=== PATIENT | female | born 1985 | race American Indian/Alaskan Native ===

== ENCOUNTER 2017-04-11 10:30 | Outpatient (CLI) | payer MEDICAID ==
[2017-04-11] MEDS ORDERED: LACTATED RINGERS 500 ML IV ONE (10:54)
[2017-04-11 12:21] LABS: Hematocrit 24.4 % (30.3-42.9); Hemoglobin 8.4 gm/dl (10.1-14.3); Mean Corpuscular HGB Conc 35 % (30-34); Mean Corpuscular Hemoglobin 28 pg (28-32); Mean Corpuscular Volume 80 fl (79-97); Platelet Count 340 K/mm3 (140-440); Red Blood Count 3.04 M/mm3 (3.65-5.03); Red Cell Distribution Width 15.6 % (13.2-15.2); White Blood Count 9.2 K/mm3 (4.5-11.0)
[2017-04-11 12:23] LABS: Bacteria,Urine 1+ /HPF (Negative); Bilirubin,Urine NEG (Negative); Blood,Urine NEG (Negative); Ketones,Urine NEG (Negative); Leukocyte Esterase,Urine NEG (Negative); Nitrite,Urine NEG (Negative); Protein,Urine <15 mg/dL mg/dL (Negative); Urobilinogen,Urine < 2.0 mg/dL (<2.0)
[2017-04-11 12:45] LABS: Uric Acid 5.2 mg/dL (3.5-7.6)
[2017-04-11 12:46] LABS: Alanine Aminotransferase 5 units/L (7-56); Albumin 3.2 g/dL (3.9-5); Albumin/Globulin Ratio 0.9 %; Alkaline Phosphatase 83 units/L (35-129); Amylase 80 units/L (27-131); Anion Gap 18 mmol/L; Blood Urea Nitrogen 5 mg/dL (7-17); Calcium 8.7 mg/dL (8.4-10.2); Carbon Dioxide 20 mmol/L (22-30); Chloride 103.1 mmol/L (98-107); Glucose 94 mg/dL (65-100); Potassium 3.6 mmol/L (3.6-5.0); Sodium 137 mmol/L (137-145); Total Protein 6.7 g/dL (6.3-8.2)
[2017-04-11] MEDS ORDERED: ZOFRAN IV ONE (13:00)
[2017-04-11] MEDS ORDERED: PEPCID IV ONE (13:00)
[2017-04-11] MEDS ORDERED: FIORICET PO ONE (13:20)
[2017-04-11 13:29] VITALS: BP 129/77
[2017-04-11 14:14] LABS: Lipase 14 units/L (13-60)
== END 2017-04-11 13:45 | disposition home or self-care (01) ==
LOC: TRG 10:30
PROVIDERS: ATTEND Obstetrics & Gynecology
DX: O47.03 False labor before 37 completed weeks of gestation, third trimester (principal); Z3A.30 30 weeks gestation of pregnancy
CPT/HCPCS: 36415; 59025; 80053; 81001; 82150; 83615; 83690; 84550; 85027; 96360; 96366; 96367; J2405; J7120

== ENCOUNTER 2017-05-15 17:44 | Outpatient (CLI) | payer MEDICAID ==
[2017-05-15 18:14] VITALS: BP 120/73
[2017-05-15 18:15] LABS: Bilirubin,Urine NEG (Negative); Blood,Urine NEG (Negative); Ketones,Urine NEG (Negative); Leukocyte Esterase,Urine NEG (Negative); Nitrite,Urine NEG (Negative); Protein,Urine <15 mg/dL mg/dL (Negative); Urobilinogen,Urine < 2.0 mg/dL (<2.0)
[2017-05-15] MEDS ORDERED: LACTATED RINGERS 1,000 ML ONE (18:30)
[2017-05-15] MEDS ORDERED: REGLAN IV ONE ×2 (19:26→20:00)
== END 2017-05-15 19:48 | disposition home or self-care (01) ==
LOC: TRG 17:44
PROVIDERS: ATTEND Obstetrics & Gynecology
DX: O47.03 False labor before 37 completed weeks of gestation, third trimester (principal); Z3A.36 36 weeks gestation of pregnancy
CPT/HCPCS: 59025; 81001; 96360; 96374; J2765; J7120

== ENCOUNTER 2017-06-11 05:08 | Inpatient (IN) | payer MEDICAID, OTHER ==
--- NOTE | 2017-06-11 02:14 | History and Physical Report ---
History of Present Illness Date of examination: 06/11/17 Chief complaint: scheduled section History of present illness: 31 year old female MC 06/18/17 at 39w0d with a h/o previous x 1 who presents for repeat sections. Pt reports irregular contractions, and denies vaginal bleeding and leakage of fluid. She has had care at [facility] since 20 wks complicated by genital herpes, obesity, sickle cell trait, exposure yellow fever and malarial meds during . She is GBS positive and does not desire future fertility. 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 Family/Genetic History: none Social history: no significant social history - Obstetrical History Expected Date of Delivery: 06/18/17 Actual Gestation: 39 Week(s) 0 Day(s) : 3 Para: 1 Hx # Term Pregnancies: 1 Number of Pregnancies: 0 Spontaneous Abortions: 1 Induced : 0 Number of Living Children: 1 Medications and Allergies Allergies Allergy/AdvReac Type Severity Reaction Status Date / Time No Known Allergies Allergy Verified 12/15/14 13:12 Home Medications Medication Instructions Recorded Confirmed Last Taken Type 19 Chewable 1 caplet PO DAILY 05/15/17 05/15/17 05/15/17 09:00 History 1 Review of Systems All systems: negative - Physical Exam Breasts: Positive: deferred Abdomen: Positive: soft (obese, gravid ) Uterus: Positive: enlarged (gravid ) Extremities: Positive: normal - Obstetrical FHR: category 1 Uterine Contraction Monitor Mode: Palpation Uterine Contraction Pattern: Absent Uterine Tone Measurement Phase: Resting Results Result Diagrams: 06/11/17 06:30 All other labs normal. Assessment and Plan A: IUP at 39w0d Previous section Undesired Fertility Obesity Genital Herpes P: Proceed with repeat section, bilateral tubal ligation and other indicated procedures.
[~2017-06-11 05:08] MED LIST: LACTATED RINGERS 1,000 ML IV SCH; PITOCin/NS 20 UNIT/1000ML DRIP 20 UNITS/1,000 ML BAG IV SCH; REGLAN IV ONE
[2017-06-11] MEDS ORDERED: ANCEF/STERILE WATER 2 GM/20 ML 2 GM/20 ML SYRINGE IV NR (06:00)
[2017-06-11] MEDS ORDERED: BICITRA PO ONE (06:15)
[2017-06-11] MEDS ORDERED: PEPCID IV ONE (06:15)
[2017-06-11] MEDS ORDERED: REGLAN ONE (06:41)
[2017-06-11 07:02] LABS: Basophils % (Auto) 0.3 % (0.0-1.8); Eosinophils % (Auto) 0.9 % (0.0-4.3); Hematocrit 29.9 % (30.3-42.9); Hemoglobin 10.1 gm/dl (10.1-14.3); Mean Corpuscular HGB Conc 34 % (30-34); Mean Corpuscular Volume 75 fl (79-97); Platelet Count 289 K/mm3 (140-440); White Blood Count 8.8 K/mm3 (4.5-11.0)
[2017-06-11 07:06] LABS: Mean Corpuscular Hemoglobin 25 pg (28-32)
--- NOTE | 2017-06-11 07:51 | Anesthesia Day of Surgery ---
Anesthesia Day of Surgery - Day of Surgery Patient Examined: Yes Patient H&P Reviewed: Yes Patient is NPO: Yes
--- NOTE | 2017-06-11 07:51 | Anesthesia Consultation ---
Anesthesia Consult and Med Hx Date of service: 06/11/17 - Airway Anesthetic Teeth Evaluation: Good ROM Head & Neck: Adequate Mental/Hyoid Distance: Adequate Mallampati Class: Class II Intubation Access Assessment: Probably Good - Pre-Operative Health Status ASA Pre-Surgery Classification: ASA2 Proposed Anesthetic Plan: Epidural, Spinal - Pulmonary Hx Asthma: No COPD: No Hx Pneumonia: No - Cardiovascular System Hx Hypertension: No Hx Coronary Artery Disease: No Hx Heart Attack/AMI: No Hx Angina: No - Central Nervous System Hx Seizures: No Hx Psychiatric Problems: No - Endocrine Hx Renal Disease: No Hx End Stage Renal Disease: No Hx Hypothyroidism: No Hx Hyperthyroidism: No - Hematic Hx Anemia: Yes Hx Sickle Cell Disease: Yes (trait) - Other Systems Hx Alcohol Use: No Hx Obesity: Yes (BMI 39.1)
[2017-06-11] MEDS ORDERED: NARCAN 0.4 MG/1 ML IV PRN ×2 (08:00→12:58)
[2017-06-11] MEDS ORDERED: PHENERGAN PR PRN (08:00)
[2017-06-11] MEDS ORDERED: SODIUM CHLORIDE FLUSH SYRINGE 10 ML IV PRN (08:00)
[2017-06-11] MEDS ORDERED: DILAUDID IV PRN (08:00)
[2017-06-11] MEDS ORDERED: BENADRYL IV PRN (08:00)
[2017-06-11] MEDS ORDERED: ZOFRAN IV PRN (08:00)
[2017-06-11] MEDS ORDERED: MORPHINE ONE (09:00)
[2017-06-11] MEDS ORDERED: WATER FOR IRRIG STERILE IR ONE (09:10)
[2017-06-11] MEDS ORDERED: NACL 0.9% IR ONE (09:10)
[2017-06-11] MEDS ORDERED: ANCEF/STERILE WATER 2 GM/20 ML IV ONE (09:16)
[2017-06-11] MEDS ORDERED: NACL 0.9% 1000 ML 1,000 ML ONE (09:47)
--- NOTE | 2017-06-11 11:06 | Procedure Note ---
OB Delivery Note - Delivery Date of Delivery: 06/11/17 Surgeon: MARCO FOSTER Estimated blood loss: other (700 mL) - Section Preop diagnosis: repeat Postop diagnosis: same section procedure: section, repeat low transverse, bilateral tubal ligation Disposition: PACU Complications: none Narrative: Please see operative note. - Infant A at 1 minute: 8 at 5 minutes: 9 Gender: Male (3362g (7lb 6.5 oz) @ 0957 am)
--- NOTE | 2017-06-11 11:06 | Operative Report ---
Operative Report Operative Report: Date of procedure: 06/11/17 Preoperative diagnosis: 1) IUP at 39w0d 2) Previous x 1 3) Obesity 4) Undesired Fertility Postoperative diagnosis: Same Procedure: 1) Repeat low transverse section 2) Bilateral tubal ligation via Filshie clip method Surgeon: Karmen Lou M.D. Anesthesia: Spinal-epidural Findings: 1) Viable male , Apgars 8 and 9, weight 3362 g, (7 lb 6.5 oz) 2) Normal-appearing uterus ovaries and tubes Estimated blood loss: 700 mL IV fluids: 1600 mL Urine output: 300 mL, clear at the end of the procedure Drains: Mcgarry to gravity Specimens: None Complications: None. Counts correct x 3. Disposition: Stable to PACU Indication for procedure: The patient is a 31 year old female at 39w0d with a h/o previous x 1 who presents for repeat section. Operation in detail: After the risks, benefits, alternatives and complications were explained to the patient she gave informed consent for the procedure. She was subsequently taken to the operating room where spinal-epidural anesthesia was noted to be adequate. She was subsequently placed in the dorsal supine position with leftward tilt and prepped and draped in a normal sterile fashion. heart tones were noted to be in the 130s prior to incision. A timeout was performed. A Pfannenstiel skin incision was made with the knife and carried down to the layer of the fascia with the Bovie. The fascia was incised in the midline and the fascial incision was extended bilaterally with the Bovie. Attention was then turned to the superior aspect of the incision which was grasped with two Kochers, tented up, and dissected off the rectus muscles. Attention was then turned to the inferior aspect of the incision which was grasped with two Kochers , tented up and dissected off the rectus muscles. The rectus muscles were then in the midline and partially transected for adequate visualization. The peritoneum was then entered sharply between two Renetta clamps. The peritoneal incision was extended with good visualization of the bladder. The peritoneal incision was then stretched. An Charlie self-retaining retractor was placed for visualization. The bladder blade was placed. The vesicouterine peritoneum was noted to be adherent to the lower uterine segment and a bladder flap was not created. A transverse incision was made in the lower uterine segment with a knife and extended bilaterally with the bandage scissors. The head was delivered without difficulty followed by shoulders and body. was bulb suctioned at delivery. The cord was clamped and cut and the was handed to NICU staff in attendance. Cord blood was collected. The placenta was then delivered manually. The uterus was then exteriorized and cleared of all clots and debris. The hysterotomy was then reapproximated with 0 Vicryl in a running locked fashion. Additional figure of eight suture of 0 Vicryl were used to obtain hemostasis. Attention was then turned to the tubal ligation. Both fallopian tubes were examined and noted to have multiple vessels in the mesosalpinx closely associated with them bilaterally. The decision was made to proceed with tubal ligation via Filshie clip method. Two Filshie clips were placed across the ampullae of each fallopian tube bilaterally. Hemostasis was noted. The hysterotomy was inspected and hemostasis was noted. Another figure of eight of 2-0 Vicryl was placed assure hemostasis. The uterus was then returned to the peritoneal cavity. All instruments were removed from the abdominal cavity. The gutters were irrigated and cleared of all clots and debris. The hysterotomy was again inspected and noted to be hemostatic. Surgicel was then placed over the hysterotomy. The rectus muscles and peritoneum were then reapproximated with 2-0 Vicryl in a running fashion in one layer. Surgicel was placed across the cut edges of the rectus muscle and hemostasis was noted. The fascia was reapproximated with 0 Vicryl in a running fashion. The skin was reapproximated with 4-0 Vicryl in a subcuticular fashion. The incision was then covered with steri strips and a pressure dressing. The procedure was then ended. The patient tolerated the procedure well and was taken to the PACU in stable condition. All instrument, lap, and needle counts were correct 3.
[2017-06-11] MEDS ORDERED: MYLICON PO PRN (12:58)
[2017-06-11] MEDS ORDERED: MORPHINE IV PRN ×2 (12:58→14:00)
[2017-06-11] MEDS ORDERED: SODIUM CHLORIDE FLUSH SYRINGE 10 ML IV SCH (12:58)
[2017-06-11] MEDS: TORADOL IV PRN (13:28)
[2017-06-11] MEDS ORDERED: TUCKS PAD TP PRN (14:00)
[2017-06-11] MEDS ORDERED: PITOCin/NS 20 UNIT/1000ML DRIP 20 UNITS/1,000 ML BAG IV SCH (15:00)
[2017-06-11] MEDS: D5LR 1,000 ML IV SCH (17:05)
[2017-06-11] MEDS: ANCEF/NS 1 GM/50 ML 1 GM/50 ML BAG IV SCH (17:05)
[2017-06-11 23:53] LABS: Hematocrit 28.6 % (30.3-42.9)
[2017-06-12] MEDS: ANCEF/NS 1 GM/50 ML 1 GM/50 ML BAG IV SCH (00:35)
[2017-06-12] MEDS: D5LR 1,000 ML IV SCH (01:48)
[2017-06-12] MEDS: TORADOL IV PRN (01:53)
[2017-06-12] MEDS ORDERED: BOOSTRIX IM ONE (06:00)
[2017-06-12] MEDS: PERCOCET 5/325 PO PRN ×3 (08:29→18:22)
--- NOTE | 2017-06-12 09:34 | Progress Note ---
Assessment and Plan - Patient Problems (1) delivery delivered Current Visit: Yes Status: Acute Plan to address problem: patient doing well consider discharge home tomorrow Subjective - Subjective Date of service: 06/12/17 Interval history: The patient reports being able to void. She is tolerating a clear diet. Pain is being controlled. Patient reports: appetite normal, voiding normally, pain well controlled : doing well Objective - Vital Signs Latest vital signs: Vital Signs Temp Pulse Resp BP BP Pulse Ox 06/12/17 08:25 98.8 F 98 H 20 106/60 97 06/12/17 03:45 98.9 F 73 20 118/74 98 06/12/17 01:20 99.1 F 79 20 111/68 95 06/11/17 20:32 92 H 104/65 97 06/11/17 12:30 97.7 F 77 20 102/55 06/11/17 12:20 113/74 06/11/17 12:15 97.6 F 88 21 110/59 100 06/11/17 12:10 70 13 110/59 96 06/11/17 12:05 73 18 112/62 94 06/11/17 12:00 71 17 109/60 96 06/11/17 11:55 72 14 115/56 97 06/11/17 11:50 71 18 115/56 98 06/11/17 11:45 68 16 102/53 98 06/11/17 11:40 74 18 112/58 100 06/11/17 11:39 70 10 L 102/55 06/11/17 11:38 102/55 06/11/17 11:35 71 13 102/55 97 06/11/17 11:30 75 16 111/52 97 06/11/17 11:25 76 14 110/57 98 06/11/17 11:20 78 19 111/59 98 06/11/17 11:19 77 15 113/55 98 06/11/17 11:14 97.7 F 73 12 113/55 99 Intake and Output 06/11/17 06/12/17 06/12/17 22:59 06:59 14:59 Intake Total 50 1120 Balance 50 1120 Intake: IV 50 1000 ANCEF/NS 1 GM/50 ML 1 gm 50 In 50 ml @ 100 mls/hr IV Q8H MURRAY Rx#:[id number] D5lr 1,000 ml @ 125 mls/ 1000 hr IV DIRECT MURRAY Rx#: [id number] Oral 120 Other: Total, Intake Amount 120 - Exam Abdomen: Present: normal appearance, soft Uterus: Present: normal, firm Incision: Present: dressed - Labs Labs: Abnormal lab results 06/11/17 Range/Units 23:11 Hgb 9.0 L (10.1-14.3) gm/dl Hct 28.6 L (30.3-42.9) %
[2017-06-12] MEDS ORDERED: M-M-R II VACCINE SUB-Q ONE (12:00)
[2017-06-12] MEDS: MOTRIN PO PRN ×2 (13:33→21:39)
[2017-06-12] MEDS: MILK OF MAGNESIA PO PRN ×2 (16:19→21:38)
[2017-06-12] MEDS: FEOSOL PO SCH (21:39)
[2017-06-13] MEDS: PERCOCET 5/325 PO PRN ×3 (04:12→15:33)
[2017-06-13] MEDS: MILK OF MAGNESIA PO PRN (04:12)
--- NOTE | 2017-06-13 07:29 | Discharge Summary ---
Providers - Providers Date of Admission: 06/11/17 05:08 Date of discharge: 06/13/17 Attending physician: MARCO FOSTER 06/11/17 12:58 Consult to Train Brake Operator [CONS] Routine Reason For Exam: Primary care physician: MARCO FOSTER Hospitalization Reason for admission: section Delivery: Procedure: section, bilateral tubal ligation, repeat low transverse Incision: normal complications: none Discharge diagnosis: IUP at term delivered [place] baby: male Hospital course: Patient admitted for a repeat delivery. Please see operative note for details of surgery. Her postoperative course was uneventful. Condition at discharge: Good Disposition: DC-01 TO HOME OR SELFCARE - Discharge Diagnoses (1) delivery delivered Status: Acute Plan - Discharge Medications Prescriptions: Ferrous Sulfate [Feosol 325 MG tab] 325 mg PO BID #60 tablet Ibuprofen [Motrin] 800 mg PO Q8HR PRN #30 tablet PRN Reason: Pain oxyCODONE /ACETAMINOPHEN [Percocet 5/325] 1 tab PO Q6HR PRN #30 tablet PRN Reason: Pain - Provider Discharge Summary Activity: no sex for 6 weeks, no heavy lifting 4 weeks, no strenuous exercise Diet: routine Instructions: routine Additional instructions: [] Smoking cessation referral if applicable(refer to patient education folder for contact #) [] Refer to [facility] Booklet Call your doctor immediately for: * Fever > 100.5 * Heavy vaginal bleeding ( >1 pad per hour) * Severe persistent headache * Shortness of breath * Reddened, hot, painful area to leg or breast * Drainage or odor from incision. * Keep incision clean and dry at all times and follow doctor's instructions regarding bathing/showering Follow-up in 2 weeks for an incision check - Follow up plan
--- NOTE | 2017-06-13 07:29 | Progress Note ---
Assessment and Plan - Patient Problems (1) delivery delivered Current Visit: Yes Status: Acute Plan to address problem: patient doing well discharge home Subjective - Subjective Date of service: 06/13/17 Interval history: The patient reports tolerating her diet without difficulty. Her pain is controlled. Patient reports: appetite normal, voiding normally, pain well controlled [place]: doing well Objective - Vital Signs Latest vital signs: Vital Signs Temp Pulse Resp BP Pulse Ox 06/13/17 00:50 98.7 F 104 H 20 122/61 98 06/12/17 18:22 20 06/12/17 08:25 98.8 F 98 H 20 106/60 97 Intake and Output 06/12/17 06/13/17 06/13/17 22:59 06:59 14:59 Intake Total 240 240 Balance 240 240 Intake: Oral 240 240 Other: Total, Intake Amount 240 240 # Voids Void 1 1 - Exam Abdomen: Present: normal appearance Uterus: Present: normal Incision: Present: normal
[2017-06-13] MEDS: FEOSOL PO SCH (12:16)
[2017-06-13] MEDS: MOTRIN PO PRN (12:20)
[2017-06-13 17:44] VITALS: BP 130/72
== END 2017-06-13 19:20 | disposition home or self-care (01) | DRG 765 ==
LOC: APU 05:08 → OB 12:57
PROVIDERS: ADMIT Obstetrics & Gynecology; ATTEND Obstetrics & Gynecology
PROC: 10D00Z1 Extraction of Products of Conception, Low, Open Approach (ICD-10-PCS; principal; 2017-06-11)
PROC: 0UL70CZ Occlusion of Bilateral Fallopian Tubes with Extraluminal Device, Open Approach (ICD-10-PCS; 2017-06-11)
PROC: 3E0234Z Introduction of Serum, Toxoid and Vaccine into Muscle, Percutaneous Approach (ICD-10-PCS; 2017-06-12)
DX: O34.211 Maternal care for low transverse scar from previous cesarean delivery (principal); O98.52 Other viral diseases complicating childbirth; E66.9 Obesity, unspecified; O99.214 Obesity complicating childbirth; B00.9 Herpesviral infection, unspecified; Z3A.39 39 weeks gestation of pregnancy; Z37.0 Single live birth; Z68.39 Body mass index [BMI] 39.0-39.9, adult; Z30.2 Encounter for sterilization; Z23 Encounter for immunization
CPT/HCPCS: 36415; 85014; 85018; 85025; 86850; 86900; 86901; J0690; J1885; J2270; J2590; J2765; J7030; J7120; J7121

== ENCOUNTER 2017-06-30 13:03 | Inpatient (IN) | payer MEDICAID ==
[2017-06-30] MEDS ORDERED: CALCIUM GLUCONATE IV ONE (13:05)
[2017-06-30] MEDS ORDERED: APRESOLINE IV PRN (13:05)
[2017-06-30] MEDS ORDERED: MAGNESIUM SULFATE 4GM/100ML 4 GM/100 ML BAG IV ONE ×2 (13:05→17:15)
--- NOTE | 2017-06-30 13:16 | History and Physical Report ---
History of Present Illness Date of examination: 06/30/17 Date of admission: 06/30/17 13:03 Chief complaint: sent from the office for elevated blood pressures History of present illness: Pt is a 31 year old female s/p repeat section with tubal ligation on 06/11/17 who presents to the office with headache and blood pressures 150/90s. She denies blurry vision and scotomata. She has no prior history of hypertension. 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: herpes Family/Genetic History: none Social history: no significant social history - Obstetrical History : 3 Para: 2 Hx # Term Pregnancies: 2 Number of Pregnancies: 0 Spontaneous Abortions: 0 Induced : 1 Number of Living Children: 2 Medications and Allergies Allergies Allergy/AdvReac Type Severity Reaction Status Date / Time No Known Allergies Allergy Verified 06/30/17 15:06 Home Medications Medication Instructions Recorded Confirmed Last Taken Type Ibuprofen [Motrin] 800 mg PO Q8HR PRN #30 tablet 06/11/17 06/30/17 06/29/17 Rx Ferrous Sulfate [Feosol 325 MG tab] 325 mg PO DAILY 06/30/17 06/30/17 06/29/17 History Active Meds: Active Medications Calcium Gluconate (Calcium Gluconate) 1,000 mg IV ONCE ONE Stop: 06/30/17 13:06 Hydralazine HCl (Apresoline) 5 mg IV Q30MIN PRN PRN Reason: Hypertension Lactated Ringer's (Lactated Ringers) 1,000 mls @ 125 mls/hr IV DIRECT MURRAY Magnesium Sulfate (Magnesium Sulfate 40gm/1000ml) 40 gm in 1,000 mls @ 25 mls/ hr IV TITR MURRAY PRN Reason: 1 GM/HR Stop: 07/01/17 13:59 Magnesium Sulfate (Magnesium Sulfate 4gm/100ml) 4 gm in 100 mls @ 300 mls/hr IV ONCE ONE Stop: 06/30/17 13:24 Review of Systems All systems: negative - Physical Exam Breasts: Positive: deferred Cardiovascular: Regular rate Lungs: Positive: Clear to auscultation Abdomen: Positive: soft (obese , 1 cm separation of incision; remainder clean/ dry and intact ) Uterus: Positive: enlarged Results Result Diagrams: 06/30/17 19:31 06/30/17 19:31 All other labs normal. Assessment and Plan A: preeclampsia Wound infection Obesity P: Admit to hospital IV magnesium sulfate for seizure prophylaxis PIH labs Clindamycin treatment for wound infection while Antihypertensives as indicated. Closely monitor clinical status.
[2017-06-30] MEDS ORDERED: MAGNESIUM SULFATE 40GM/1000ML 40 GM/1,000 ML BAG IV SCH ×2 (14:00→18:00)
[2017-06-30] MEDS ORDERED: LACTATED RINGERS 1,000 ML IV SCH (14:00)
[2017-06-30 16:20] LABS: Bilirubin,Urine NEG (Negative); Blood,Urine LG (Negative); Ketones,Urine NEG (Negative); Leukocyte Esterase,Urine SM (Negative); Mucus,Urine FEW /HPF; Nitrite,Urine NEG (Negative); Protein,Urine <15 mg/dL mg/dL (Negative); Urobilinogen,Urine < 2.0 mg/dL (<2.0)
[2017-06-30] MEDS ORDERED: MAGNESIUM SULFATE 40GM/1000ML 40 GM/1,000 ML BAG IV ONE (17:14)
[2017-06-30] MEDS ORDERED: LACTATED RINGERS 1,000 ML ONE (17:21)
[2017-06-30 19:52] LABS: Hematocrit 34.3 % (30.3-42.9); Hemoglobin 10.9 gm/dl (10.1-14.3); Mean Corpuscular HGB Conc 32 % (30-34); Mean Corpuscular Volume 77 fl (79-97); Platelet Count 321 K/mm3 (140-440); Red Blood Count 4.47 M/mm3 (3.65-5.03); Red Cell Distribution Width 19.7 % (13.2-15.2); White Blood Count 6.2 K/mm3 (4.5-11.0)
[2017-06-30 19:55] LABS: Mean Corpuscular Hemoglobin 24 pg (28-32)
[2017-06-30] MEDS: TYLENOL PO PRN (20:01)
[2017-06-30 20:21] LABS: Alanine Aminotransferase 8 units/L (7-56); Lactate Dehydrogenase 176 units/L (91-180)
[2017-07-01] MEDS: LACTATED RINGERS 1,000 ML IV SCH ×2 (04:12→15:00)
[2017-07-01] MEDS ORDERED: LACTATED RINGERS 1,000 ML IV SCH (05:00)
[2017-07-01] MEDS: TYLENOL PO PRN (07:54)
--- NOTE | 2017-07-01 09:01 | Progress Note ---
Assessment and Plan A: preeclampsia s/p section on 06/11/17 Obesity Wound infection P: Continue magnesium sulfate x 24 hrs Labetalol 100 mg BID Clindamycin 300 mg Q6H Monitor clinical status. Subjective - Subjective Date of service: 07/01/17 Principal diagnosis: Preeeclampsia, s/p section on 06/11/17 Interval history: Pt reports headache, but feel that it is similar to her migraines. Denies scotomata, blurry vision or right upper quadrant pain Patient reports: appetite normal, pain well controlled, ambulating normally Objective - Vital Signs Latest vital signs: Vital Signs Temp Pulse Resp BP Pulse Ox 07/01/17 04:15 98.0 F 73 18 144/83 07/01/17 02:00 98.9 F 86 18 142/76 07/01/17 00:00 98.2 F 79 18 138/84 06/30/17 22:00 98.2 F 78 18 145/93 06/30/17 21:01 18 06/30/17 20:01 16 06/30/17 20:00 98.4 F 82 18 140/92 06/30/17 18:00 16 135/79 99 06/30/17 17:45 98.7 F 98 H 18 138/74 99 06/30/17 17:35 69 149/86 100 06/30/17 17:30 63 158/92 06/30/17 16:20 97.9 F 67 16 162/89 Intake and Output 06/30/17 07/01/17 07/01/17 22:59 06:59 14:59 Intake Total 240 Output Total 1600 Balance 240 -1600 Intake: Oral 240 Output: Urine 1600 Void 1600 Other: Total, Intake Amount 240 Total, Output Amount 700 Weight 96.615 kg - Exam Breasts: Present: deferred Cardiovascular: Present: Regular rate Lungs: Present: Clear to auscultation Abdomen: Present: soft (obese) Uterus: Present: fundal height below umbilicus Extremities: Present: normal. Absent: tenderness Incision: Present: intact - Labs Labs: Abnormal lab results 06/30/17 06/30/17 06/30/17 Range/Units 19:31 19:31 21:41 MCV 77 L (79-97) fl MCH 24 L (28-32) pg RDW 19.7 H (13.2-15.2) % Creatinine 0.6 L (0.7-1.2) mg/dL Magnesium 3.10 H (1.7-2.3) mg/dL
[2017-07-01] MEDS ORDERED: NORMODYNE PO SCH (10:00)
[2017-07-01] MEDS ORDERED: FIORICET PO PRN (10:30)
[2017-07-01] MEDS: CLEOCIN PO SCH ×2 (12:10→18:12)
[2017-07-01] MEDS ORDERED: IMITREX PO ONE (13:55)
[2017-07-01] MEDS ORDERED: NORMODYNE PO ONE (18:12)
[2017-07-01] MEDS: NORMODYNE PO SCH (22:03)
[2017-07-02] MEDS: CLEOCIN PO SCH ×2 (00:07→05:22)
--- NOTE | 2017-07-02 08:23 | Progress Note ---
Assessment and Plan A: preeclampsia s/p 24 hrs of magnesium s/p section on 06/11/17 Obesity Wound infection P: Continue magnesium sulfate x 24 hrs Labetalol 400 mg BID Clindamycin 300 mg Q6H Monitor clinical status. Subjective - Subjective Date of service: 07/02/17 Principal diagnosis: Preeeclampsia, s/p section on 06/11/17 Interval history: Pt without complaints. No further headaches Patient reports: appetite normal, voiding normally, pain well controlled, ambulating normally Objective - Vital Signs Latest vital signs: Vital Signs Temp Pulse Resp BP BP 07/02/17 00:00 98.0 F 69 18 129/69 07/01/17 23:00 98.5 F 56 L 154/80 07/01/17 22:03 88 166/91 07/01/17 20:00 98.2 F 87 18 170/88 07/01/17 18:30 99.0 F 65 18 177/100 07/01/17 18:20 71 178/104 07/01/17 18:12 71 178/104 07/01/17 16:05 98.9 F 67 17 166/83 07/01/17 14:00 98.3 F 66 18 157/87 07/01/17 12:00 98.8 F 75 18 141/94 07/01/17 10:00 98.2 F 74 17 151/83 07/01/17 08:35 98.7 F 76 18 114/60 Intake and Output 07/01/17 07/02/17 07/02/17 22:59 06:59 14:59 Intake Total 480 120 Balance 480 120 Intake: Oral 480 120 Other: Total, Intake Amount 240 120 # Voids Void 1 1 - Exam Breasts: Present: deferred Cardiovascular: Present: Regular rate Lungs: Present: Clear to auscultation Abdomen: Present: soft Uterus: Present: fundal height below umbilicus Extremities: Present: normal Incision: Present: intact - Labs Labs: Abnormal lab results 07/01/17 Range/Units 13:35 Magnesium 3.70 H (1.7-2.3) mg/dL
--- NOTE | 2017-07-02 08:27 | Discharge Summary ---
Providers - Providers Date of Admission: 06/30/17 18:01 Date of discharge: 07/02/17 Attending physician: MARCO FOSTER Primary care physician: MARCO FOSTER Hospitalization Reason for admission: other ( preesclampsia ) Procedure details: IV magnesium sulfate administration Hospital course: Pt has been admitted for preeclampsia. She was given antihypertensive information and started on labetalol 400 mg BID. She will follow up in the office in 1 week for a blood pressure check. Condition at discharge: Stable Disposition: - TO HOME OR SELFCARE - Discharge Diagnoses (1) Obesity (BMI 35.0-39.9 without comorbidity) Status: Acute (2) Preeclampsia Status: Acute Qualifiers: Trimester: unspecified trimester Qualified Code(s): O14.90 - Unspecified pre-eclampsia, unspecified trimester Plan - Discharge Medications Prescriptions: Clindamycin [Clindamycin CAP] 300 mg PO Q6H #28 capsule Labetalol [Normodyne] 200 mg PO BID #60 tablet - Provider Discharge Summary Activity: routine, no sex for 6 weeks, no heavy lifting 4 weeks, no strenuous exercise Diet: routine Instructions: routine Additional instructions: [] Smoking cessation referral if applicable(refer to patient education folder for contact #) [] Refer to [facility] Booklet Call your doctor immediately for: * Fever > 100.5 * Heavy vaginal bleeding ( >1 pad per hour) * Severe persistent headache * Shortness of breath * Reddened, hot, painful area to leg or breast * Drainage or odor from incision. * Keep incision clean and dry at all times and follow doctor's instructions regarding bathing/showering - Follow up plan Follow up: MARCO FOSTER MD [Primary Care Provider] - 7 Days
[2017-07-02 09:35] VITALS: BP 126/82
[2017-07-02] MEDS: NORMODYNE PO SCH (09:46)
== END 2017-07-02 09:50 | disposition home or self-care (01) | DRG 776 ==
LOC: 3A 13:03 → UNDOADMIN 13:03 → OB 18:01
PROVIDERS: ADMIT Obstetrics & Gynecology; ATTEND Obstetrics & Gynecology
DX: O14.95 Unspecified pre-eclampsia, complicating the puerperium (principal); O86.0 Infection of obstetric surgical wound; O99.215 Obesity complicating the puerperium; E66.9 Obesity, unspecified; O99.355 Diseases of the nervous system complicating the puerperium; G43.909 Migraine, unspecified, not intractable, without status migrainosus; Z68.35 Body mass index [BMI] 35.0-35.9, adult; Z98.51 Tubal ligation status; Z79.899 Other long term (current) drug therapy
CPT/HCPCS: 36415; 81001; 82565; 83615; 83735; 84450; 84460; 85027; J3475; J7120

== ENCOUNTER 2017-06-30 15:00 | Emergency (ER) | payer MEDICAID ==
[2017-06-30 15:55] LABS: Basophils % (Auto) 0.6 % (0.0-1.8); Eosinophils % (Auto) 2.3 % (0.0-4.3); Hematocrit 35.1 % (30.3-42.9); Hemoglobin 11.2 gm/dl (10.1-14.3); Mean Corpuscular HGB Conc 32 % (30-34); Mean Corpuscular Volume 77 fl (79-97); Platelet Count 341 K/mm3 (140-440); Red Blood Count 4.57 M/mm3 (3.65-5.03); Red Cell Distribution Width 19.9 % (13.2-15.2); White Blood Count 6.6 K/mm3 (4.5-11.0)
[2017-06-30 16:00] LABS: Mean Corpuscular Hemoglobin 24 pg (28-32)
[2017-06-30] MEDS ORDERED: MAGNESIUM SULFATE 4GM/100ML 4 GM/100 ML BAG IV ONE (16:00)
[2017-06-30] MEDS ORDERED: NORMODYNE IV ONE (16:00)
--- NOTE | 2017-06-30 16:05 | Emergency Department Report ---
HPI - General Chief Complaint: High BP Time Seen by Provider: 06/30/17 15:52 - HPI HPI: Room 2 The patient is a 31-year-old female presenting to chief complaint of hypertension/preeclampsia. Patient is status post delivery via 2016. The patient states she went for a two-week checkup yesterday with her OB/ POOL COORDINATOR Dr. Lou and was found to be hypertensive. Patient states she followed up again today for repeat blood pressure was still felt to be hypertensive. The patient was subsequent was sent to the ED by her THREAD MARKER for preeclampsia. Patient admits to a slight headache intermittently since delivery. Patient denies nausea/vomiting, fever or edema. Sinus are postop pain and occasional headache patient denies any other forms of pain. Patient states she is breast- feeding and bottle feeding her Location: [See above] Duration: [See above] Quality: Headache Severity:02/01 Modifying factors: [see above] Context: [see above] Mode of transportation: Unknown ED Past Medical Hx - Past Medical History Hx Sickle Cell Disease: Yes (trait) Additional medical history: Miscarriage x 1 - Surgical History Additional Surgical History: C/S - Family History Family history: no significant - Social History Smoking Status: Never Smoker Substance Use Type: None - Medications Home Medications: Home Medications Medication Instructions Recorded Confirmed Last Taken Type 19 Chewable 1 caplet PO DAILY 05/15/17 06/12/17 06/10/17 09:00 History 1 Ferrous Sulfate [Feosol 325 MG tab] 325 mg PO BID #60 tablet 06/11/17 Unknown Rx Ibuprofen [Motrin] 800 mg PO Q8HR PRN #30 tablet 06/11/17 Unknown Rx oxyCODONE /ACETAMINOPHEN [Percocet 1 tab PO Q6HR PRN #30 tablet 06/11/17 Unknown Rx 5/325] ED Review of Systems ROS: Stated complaint: BLOOD PRESSURE HIGH Other details as noted in HPI Eyes: denies: eye pain ENT: denies: throat pain Cardiovascular: denies: chest pain Gastrointestinal: abdominal pain (appropriate postop pain). denies: nausea, vomiting Musculoskeletal: denies: back pain Neurological: headache Physical Exam - Physical Exam Vital Signs: Vital Signs 06/30/17 06/30/17 06/30/17 15:06 15:24 15:28 Temperature 98.6 F Pulse Rate 74 66 66 Respiratory 16 16 Rate Blood Pressure 178/104 Blood Pressure 179/87 [Left] O2 Sat by Pulse 100 100 Oximetry Physical Exam: GENERAL: The patient is well-developed well-nourished female lying on stretcher his cellphone not appearing to be in acute distress. [] HEENT: Normocephalic. Atraumatic. Extraocular motions are intact. Patient has moist mucous membranes. NECK: Supple. No meningitic signs are noted. Trachea midline CHEST/LUNGS: Clear to auscultation. There is no respiratory distress noted. HEART/CARDIOVASCULAR: Regular. There is no tachycardia. There is no gallop rub or murmur. ABDOMEN: Patient has normal bowel sounds. There is no abdominal distention. SKIN: There is no rash. There is no lower extremity pitting edema appreciated. There is no diaphoresis. NEURO: The patient is awake, alert, and oriented. The patient is cooperative. The patient has no focal neurologic deficits. The patient has normal speech. Cranial nerves II through XII grossly intact, no drift MUSCULOSKELETAL: There is no evidence of acute injury. ED Course Vital Signs 06/30/17 06/30/17 06/30/17 15:06 15:24 15:28 Temperature 98.6 F Pulse Rate 74 66 66 Respiratory 16 16 Rate Blood Pressure 178/104 Blood Pressure 179/87 [Left] O2 Sat by Pulse 100 100 Oximetry - Consultations Consultation #1: 06/30/17 16:35 Informed by charge nurse Kristie that the patient is a direct admit and no calls/consults need to be made. The patient has a bed and is being transported to her room ED Medical Decision Making - Lab Data Result diagrams: 06/30/17 15:44 06/30/17 15:44 - Differential Diagnosis preeclampsia Critical care attestation.: If time is entered above; I have spent that time in minutes in the direct care of this critically ill patient, excluding procedure time. ED Disposition Clinical Impression: Preeclampsia Disposition: DC-09 OP ADMIT IP TO THIS HOSP Is pt being admited?: Yes Does the pt Need Aspirin: No Condition: Fair Instructions: Hypertension (ED) Time of Disposition: 16:35
[2017-06-30 16:15] LABS: Anion Gap 18 mmol/L; BUN/Creatinine Ratio 13; Blood Urea Nitrogen 9 mg/dL (7-17); Calcium 8.9 mg/dL (8.4-10.2); Carbon Dioxide 24 mmol/L (22-30); Chloride 103.8 mmol/L (98-107); Glucose 83 mg/dL (65-100); Potassium 4.2 mmol/L (3.6-5.0); Sodium 142 mmol/L (137-145)
[2017-06-30 16:51] VITALS: BP 160/89
== END 2017-06-30 17:02 | disposition admitted as inpatient to this hospital (09) ==
LOC: ED 15:00
DX: O14.94 Unspecified pre-eclampsia, complicating childbirth (principal)
CPT/HCPCS: 36415; 80048; 85025; 96374; 99283; J3475

== ENCOUNTER 2018-05-01 09:08 | Emergency (ER) | payer SELFPAY ==
[2018-05-01 09:19] VITALS: BP 141/86
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
== END 2018-05-01 10:34 | disposition home or self-care (01) ==
LOC: ED 09:08
DX: S13.4XXA Sprain of ligaments of cervical spine, initial encounter (principal); M54.89 Other dorsalgia; M79.10 Myalgia, unspecified site; D57.3 Sickle-cell trait; Z79.899 Other long term (current) drug therapy; V89.2XXA Person injured in unspecified motor-vehicle accident, traffic, initial encounter; Y93.89 Activity, other specified; Y92.410 Unspecified street and highway as the place of occurrence of the external cause; Y99.8 Other external cause status
CPT/HCPCS: 99282